=== PATIENT | female | born 1975 | race Two or more races ===

== ENCOUNTER 2023-12-26 22:15 | Emergency (ER) | payer MEDICAID ==
[~2023-12-26] VITALS: Ht 160 cm; Wt 79.5 kg
[2023-12-26 23:21] LABS: Urine Bacteria None Seen /hpf (None Seen)
[2023-12-26 23:27] LABS: Urine Blood 2+ /uL (Negative); Urine Clarity Clear (Clear); Urine Color Light-Yellow (Yellow); Urine Mucus FEW (None Seen); Urine Protein, UAD Negative (Negative); Urine Specific Gravity 1.021 (1.001-1.035); Urine Urobilinogen Normal (Negative); Urine WBC 3 /hpf (0 - 5); Urine pH 6.5 (5.0-9.0)
[2023-12-27] LABS: Basophils # (auto) 0.1 10 ^3/uL (0-0.2); Basophils % (auto) 0.9 % (0.0-2.0); Eosinophils # (auto) 0.1 10 ^3/uL (0-0.8); Eosinophils % (auto) 1.1 % (0.0-7.0); Hematocrit 41.5 % (36.0-46.0); Lymphocytes # (auto) 2.6 10 ^3/uL (0.4-5.4); Mean Corpuscular Hemoglobin 29.6 pg (28.0-32.0); Mean Corpuscular Hgb Conc. 33.7 g/dL (32.0-36.0); Mean Corpuscular Volume 87.8 fL (80.0-100.0); Monocytes # (auto) 0.5 10 ^3/uL (0-1.3); Monocytes % (auto) 6.8 % (0.0-12.0); Neutrophils # (auto) 4.8 10 ^3/uL (1.6-8.6); Neutrophils % (auto) 59.2 % (37.0-80.0); Nucleated Red Blood Cells % 0.2 %; Platelet Count (auto) 238 10^3/uL (140-450); Red Blood Cells 4.73 10^6/uL (4.0-5.20); Red Cell Distribution Width 13.9 % (11.8-14.3); White Blood Cell 8.1 10^3/uL (4.4-10.8)
[2023-12-27 00:09] LABS: Chloride 109 mmol/L (98-107); Potassium 4.3 mmol/L (3.5-5.1); Sodium 140 mmol/L (136-145)
[2023-12-27 00:10] LABS: Anion Gap 4 (5-15); Calcium 9.7 mg/dL (8.7-10.4); Carbon Dioxide 27 mmol/L (20-31)
[2023-12-27 00:15] LABS: BUN/Creatinine Ratio 19.7 (10.0-20.0); Blood Urea Nitrogen 14 mg/dL (9-23); Glucose 104 mg/dL (74-106)
[2023-12-27] MEDS: ONDANSETRON ODT 4 MG TAB PO ONE (00:44)
[2023-12-27] MEDS: HYDROcodone-ACET 5/325MG TAB PO ONE (00:45)
[2023-12-27] MEDS: MECLIZINE HCL 25 MG TAB PO ONE (00:48)
[2023-12-27 00:49] VITALS: PULSE 88; RESP 16; O2SAT 100
[2023-12-27] MEDS: KETOROLAC TROMETH 60MG/2ML VIAL IM ONE (01:33)
[2023-12-27] MEDS: IOHEXOL 350 MG/ML 100ML IJ ONE (01:34)
[2023-12-27] MEDS ORDERED: NAP500T PO (04:01)
[2023-12-27] MEDS ORDERED: ACET-1304 PO (04:01)
[2023-12-27] MEDS ORDERED: METH-1181 PO (04:01)
[2023-12-27 04:37] VITALS: BP 162/108; PULSE 80; RESP 16; O2SAT 100
== END 2023-12-27 04:37 | disposition home or self-care (01) ==
LOC: ER 22:15
DX: G44.209 Tension-type headache, unspecified, not intractable (principal); Z86.73 Personal history of transient ischemic attack (TIA), and cerebral infarction without residual deficits; Z98.890 Other specified postprocedural states; R42 Dizziness and giddiness
CPT/HCPCS: 36415; 70450; 70496; 80048; 81001; 82962; 85025; 93005; 96372; 99285; J1885; J8597; Q0162; Q9967